=== PATIENT | male | born 1985 | race Caucasian/White ===

== ENCOUNTER 2016-10-20 22:10 | Emergency (ER) | payer OTHER ==
[~2016-10-20 22:10] MED LIST: AMOXICILLIN875 MG PO; BACITRACIN30 GM TOP; BENADRYL25 M3 PO; KEFLEX PO; KEFLEX500 MG PO; MOBIC PO; NO MEDICATIONS; PREDNISONE50 MG PO; SILVADENE TOP; VICODIN 5/1 TAB 5/50 PO; VICODIN 5/500 T1 TAB PO
== END 2016-10-20 22:37 | disposition home or self-care (01) ==
LOC: SED 22:10
DX: F15.90 Other stimulant use, unspecified, uncomplicated (principal); F17.210 Nicotine dependence, cigarettes, uncomplicated
CPT/HCPCS: 99282